=== PATIENT | male | born 1990 | race African-American/Black ===

== ENCOUNTER 2018-03-12 13:36 | Emergency (ER) | payer SELFPAY ==
[~2018-03-12] VITALS: Ht 170.2 cm; Wt 122.0 kg
[2018-03-12 13:46] VITALS: BP 137/84
== END 2018-03-12 17:05 | disposition home or self-care (01) ==
LOC: ER 13:36
DX: K04.7 Periapical abscess without sinus (principal)
CPT/HCPCS: 99282; 99283